=== PATIENT | female | born 1930 | race Caucasian/White ===

== ENCOUNTER → 2016-11-08 | Outpatient (CLI) | payer MEDICARE, OTHER ==
[~2016-11-08] MED LIST: ACID REDUCER20 MG PO; AGGRENOX PO; AGGRENOX1 CAP PO; ASPIRIN EC81 M1 PO; ASPIRIN81 M1 PO; ASPIRIN81 M2 PO; BENICAR20 MG PO; CARVEDILOL3.125 MG PO; COZAAR100 MG PO; ELIQUIS5 MG PO; FAMOTIDINE20 M1 PO; HYDROGESIC 5/501 CAP PO; IMDUR-ER30 M1 PO; IMDUR-ER30 MG PO; IMDUR30 MG PO; LIDOCREAM5 GM TOP; LIPITOR PO; LORTAB 7.5-5001 TAB PO; MEDROL4 MG/DOSE- PO; MICARDIS40 MG PO; NEXIUM PO; NITROGLYGERIN0.4 MG SL; PEPCID AC20 MG PO; PEPCID40 MG PO; PHENERGAN25 MG PO; PLAVIX PO; SIMVASTATIN40 MG PO; SYNTHROID PO; SYNTHROID0.1 MG PO; SYNTHROID125 PO; TYLOX1 CAP 5/50 PO; VICODIN PO
--- NOTE | ~2016-11-08 | CT2 ---
[facility] A Service of [facility] RADIOLOGY TEXT RESULTS PATIENT: ZEFERINO MARKS LOCATION: [facility]AT : 30 UNIT #: [id number] AGE: [address]: Ela Zelaya MD SEX: F ORDER DR: [id number] [facility] [address] [place], [place] [address] [id number] O MR#: [id number] Acc #: [id number] NAME: ZEFERINO MARKS : 1930 SEX: F STUDY DATE/TIME: 11/08/2016 15:48 UNIT: [facility]AT ROOM: STUDY DESCRIPTION: CT Abd and Pelv W Cont Attending Physician: Ela Zelaya M.D. Referring Physician: Ela Zelaya M.D. Ordering Physician: Ela Zelaya M.D. Primary Care Physician: Ela Zelaya M.D. MEDICAL IMAGING REPORT This report is preliminary unless electronic signature is present EXAM CT abdomen and pelvis with contrast. DATE 11/08/2016 HISTORY 86-year-old female abdominal wall pain in the left upper quadrant and left lower quadrant. Patient states left side abdominal pain for 1 week. Previous cholecystectomy, hysterectomy. COMPARISON CT abdomen and pelvis without contrast, 08/01/2016. PROCEDURE 5 mm axial images from the lung bases through the lesser trochanters after intravenous and enteric contrast administration. Sagittal and coronal reformatted images were obtained. This CT exam was performed with one or more of the following radiation dose reduction techniques: automatic exposure control, adjustment of mA and/or kV according to patient size, and iterative reconstruction. FINDINGS No acute displaced left lower rib fracture is identified on this examination. Degenerative changes are seen within the thoracolumbar spine with evidence of posterior thoracic spine and lumbar spine fusion. Lung bases are free of consolidation. The liver is diffusely steatotic. 1.8 cm low-density lesion in the right hepatic lobe inferiorly is compatible with a cyst. The liver is diffusely steatotic. 8 mm low-density splenic lesion, nonspecific, but favored to represent benign cyst or hemangioma is noted and cannot be seen on the previous noncontrast STS. [facility] A Service of [facility] RADIOLOGY TEXT RESULTS PATIENT: ZEFERINO MARKS LOCATION: [facility] : 30 UNIT #: [id number] AGE: [address]: Ela Zelaya MD SEX: F ORDER DR: study. Small esophageal hiatal hernia. Benign calcified granulomatous changes in the subcarinal region of the mediastinum. Uncomplicated sigmoid diverticulosis without evidence of diverticulitis. Appendix not visualized but no pericecal inflammation is seen. Kidneys bilaterally and mildly atrophic. Tiny low-density lesion in the anteromedial interpolar region of the right kidney measuring 5-6 mm, nonspecific, but favored to represent a cyst, unchanged since the noncontrast CT chest from 05/29/2014. Mild retroperitoneal varicosities. PELVIS FINDINGS: Hysterectomy. Urinary bladder and rectum are normal. IMPRESSION 1. No acute findings in the abdomen or pelvis to explain the patient's left side abdominal pain. 2. 1.8 cm probable right hepatic lobe cyst, unchanged since 05/29/2014. 3. 5-6 mm low-density right renal lesion, unchanged from 2014, favored to represent benign cysts. Mild bilateral renal atrophy. 4. Small esophageal hiatal hernia. 5. Mild sigmoid diverticulosis without evidence of acute diverticulitis. 6. Hysterectomy. Presumed cholecystectomy. 7. Posterior spinal fusion changes in the thoracic and lumbar spine. No acute osseous abnormalities are identified. Dictated by... Jenna Gutierrez M.D. THIS IS AN ELECTRONICALLY VERIFIED REPORT Jenna Gutierrez M.D. at 11/10/2016 7:56 AM THERESA/bc TD: 11/09/2016 09:24 JOB #: [id number] MEDICAL IMAGING REPORT Page 1 of 1 COPY
[2016-11-08 17:55] LABS: POC - CREATININE 0.99 mg/dL (0.44-1.03)
== END | disposition home or self-care (01) ==
LOC: CCAT 14:20
PROVIDERS: Internal Medicine
DX: R10.32 Left lower quadrant pain (principal); R10.12 Left upper quadrant pain; K44.9 Diaphragmatic hernia without obstruction or gangrene; K57.30 Diverticulosis of large intestine without perforation or abscess without bleeding; N28.89 Other specified disorders of kidney and ureter; N26.1 Atrophy of kidney (terminal); Z90.710 Acquired absence of both cervix and uterus; Z90.49 Acquired absence of other specified parts of digestive tract; Z98.1 Arthrodesis status
CPT/HCPCS: 74177; 82565; Q9967

== ENCOUNTER 2016-11-15 17:06 | Inpatient (IN) | payer MEDICARE, OTHER ==
--- NOTE | ~2016-11-15 | DS ---
Unit #: [id number] #: [id number] Patient: ZEFERINO MARKS [id number] [address] [address] [id number] I MR#: [id number] NAME: ZEFERINO MARKS ROOM: 564 Age: 86 Sex: F Admission Date: 11/16/2016 : 1930 Discharge Date: 11/17/2016 Attending Physician: Tyler Gandara M.D. Primary Care Physician: Ela Zelaya M.D. DISCHARGE SUMMARY DISCHARGE DIAGNOSES 1. Chest pain, ruled out for an acute myocardial infarction. 2. Status post Lexiscan Cardiolite Stress Test, 11/16/2016 which showed no stress-induced ischemia and ejection fraction of 69%. There is no focal wall abnormality. 3. Elevated D-dimer with positive pulmonary embolism in the right lower lobe found on CT. 4. Single vessel coronary artery disease with 70% stenosis in the mid right coronary artery in 2011 per cardiac catheterization. 5. Recent urinary tract infection. 6. Hypertension. 7. Hyperlipidemia. 8. Paroxysmal supraventricular tachycardia. DISCHARGE MEDICATIONS 1. Lidocaine cream 15 grams topically p.r.n. 2. Lipitor 10 mg q.h.s. 3. Losartan 100 mg daily 4. Pepcid 20 mg b.i.d. 5. Aspirin 80 mg daily 6. Levothyroxine 120 mcg daily 7. Imdur 30 mg daily 8. Eliquis 10 mg p.o. b.i.d. x7 days and then 5 mg p.o. b.i.d. HOSPITAL COURSE This is an 86-year-old female, who presented to the emergency room with the complaint of shortness of breath, palpitations, and chest pain. She was ruled out for myocardial infarction with negative cardiac enzymes and troponins. She was advised to undergo stress test to evaluate coronary anatomy given her 70% stenosis of the right coronary artery. It was felt that the patient's symptoms of palpitations could be secondary to paroxysmal supraventricular tachycardia; however, there was no evidence while she was in the hospital. She was scheduled to be discharged home but she still complained of shortness of breath. D-dimer was obtained which was elevated at 3668. Followup CTA of the chest revealed right lower lobe pulmonary embolism but the clot burden was relatively small. She was started on high drip heparin for high dose heparin drip and high dose Eliquis today. Her dyspnea has improved. She is stable for discharge today. ASSESSMENT VITAL SIGNS: Blood pressure 115/60, heart rate 70. CHEST: Clear to auscultation. HEART: S1 and S2, regular rate and rhythm. Unit #: [id number] #: [id number] Patient: ZEFERINO MARKS ABDOMEN: Soft with bowel sounds present. EXTREMITIES: Without leg edema. DIAGNOSTIC STUDIES LABORATORY: Cholesterol 180, triglycerides 168, LDL 107, HDL 39. TSH 1.30. DIAGNOSTIC IMAGING: CTA of the chest reveals pulmonary embolism in this segmental branch of the right lower lobe. Hot burden is relatively small. Postoperative changes with fibrosis in the right apex. DISCHARGE INSTRUCTIONS 1. The patient will be discharged home today. 2. Follow up with Dr. Gandara on January 08 at 12:45 p.m. 3. Follow up with primary care physician in one-to-two weeks. 4. Eliquis prescription has been given for 10 mg b.i.d. for seven days and then 5 mg daily for pulmonary embolism. No other changes in her medication regimen. After the patient was discharged home, she was noted to have a heart rate at 37 beats per minute at 1:44 in the a.m. We will call the patient for placement of a 24-hour holter monitor to evaluate for sick sinus syndrome. She is not on any rate-lowering medications. Dictated by... Deepti IrahetaRMary for Mony Rodriguez/maureen TD: 11/19/2016 14:42 JOB #: [id number] DISCHARGE SUMMARY Page 1 of 1 X William Chan APRN DISCHARGE SUMMARY
--- NOTE | ~2016-11-15 | TH ---
Unit #: [id number] #: [id number] Patient: ZEFERINO MARKS [id number] [address] [address] [id number] I MR#: [id number] NAME: ZEFERINO MARKS : 1930 SEX: F STUDY DATE/TIME: 11/16/2016 UNIT: [facility] ROOM: 564 STUDY DESCRIPTION: Lexiscan stress test -Nuclear Attending Physician: Tyler Gandara M.D. Primary Care Physician: Ela Zelaya M.D. CARDIOLOGY REPORT PROCEDURE PERFORMED Lexiscan Cardiolite stress test - Nuclear portion. PROCEDURE Using technetium 99m-labeled Cardiolite, rest and stress SPECT images were obtained. Multiple SPECT images were obtained in various views, including horizontal and vertical long axis and short axis views of the left ventricle. Images were obtained by gated SPECT method. The patient was administered 11.74 mCi of Cardiolite at rest. The patient was administered 34.5 mCi of Cardiolite after Lexiscan infusion was completed. On the stress images, there is normal perfusion noted. The rest images show normal perfusion. Comparing the rest and stress images, there is no stress-induced ischemia noted. The left ventricular ejection fraction is calculated to be 69%. There is no focal wall motion abnormality seen. CONCLUSION 1. No stress-induced ischemia noted. 2. The left ventricular ejection fraction is calculated to be 69%. 3. There is no focal wall motion abnormality seen. 4. The left ventricular size is small. 5. Normal Lexiscan Cardiolite stress test. Dictated by... Mony Rodriguez/lopez TD: 11/16/2016 12:08 JOB #: [id number] CARDIOLOGY REPORT Page 1 of 1 X Kanchan Larios MD <ELECTRONICALLY SIGNED> 02/17/17 1429 CARDIOLOGY REPORT
--- NOTE | ~2016-11-15 | EKG ---
PATIENT: ZEFERINO MARKS UNIT #: [id number] Ventricular Rate: 93 BPM Atrial Rate: 93 BPM P-R Interval: 156 ms QRS Duration: 84 ms Q-T Interval: 372 ms QTC Calculation(Bezet): 462 ms P Gabriels: 76 degrees Calculated R Gabriels: -34 degrees Calculated T Gabriels: 79 degrees Diagnosis Line: Normal sinus rhythm Diagnosis Line: Left axis deviation Diagnosis Line: Moderate voltage criteria for LVH, may be normal Diagnosis Line: variant Diagnosis Line: Abnormal ECG Diagnosis Line: No previous ECGs available Diagnosis Line: Confirmed by RADHA SORENSON MD ([id number]) on 11/16/2016 Diagnosis Line: 5:03:12 AM INTERPRETING MD: DELTA EDWARDS
--- NOTE | ~2016-11-15 | HP ---
Unit #: [id number] #: [id number] Patient: ZEFERINO MARKS [id number] [facility] [address]. [place], [place] [address] [id number] I MR#: [id number] NAME: ZEFERINO MARKS ROOM: 49609 Age: 86 Sex: F Admission Date: 11/15/2016 : 1930 Attending Physician: Tyler Gandara M.D. Primary Care Physician: Ela Zelaya M.D. HISTORY AND PHYSICAL HISTORY OF PRESENT ILLNESS This is an 86-year-old white female who is known to Dr. Gandara who has a history of coronary artery disease with 70% stenosis to the mid right coronary artery per cardiac catheterization in 2009. She was continued on medical therapy. She is known to have hypertension, hyperlipidemia, and premature coronary artery disease in an immediate family member, has risk factors for ischemic heart disease. The patient presented to the emergency room with the complaint of chest pain and palpitations. She went to visit her family in [place] last week. After returning home, she felt weak and fatigued. She was diagnosed with a urinary tract infection that was treated with Macrodantin. Her fatigue persisted. Yesterday she did not feel like going out with her sister. This morning she developed substernal chest tightness with associated shortness of breath and palpitations. She felt "shaky." She went outside because she felt that the fresh air would help her breathing. Her chest tightness remained for 2 hours. She decided to come to the emergency room for evaluation. In the emergency room, initial troponin was negative. EKG showed no acute ischemic changes. There is no evidence of arrhythmias. According to the patient, she took her blood pressure at home which was systolically 111. Her heart rate was in the 90s. She denied syncope or near syncope. She had no cough or fever. Electrolytes are within normal limits. PAST MEDICAL HISTORY 1. 2D echocardiogram 01/07/2013 shows an ejection fraction equal to 50% to 55%. There was trace aortic regurgitation and trace pulmonic valve regurgitation. 2. Left heart catheterization 11/20/[address] Gandara at [facility] that revealed left main, LAD, and circumflex arteries normal. Right coronary artery, large caliber dominant vessel with mid segment stenosis of 70%. Distal right coronary artery PDA and PLV branches normal. Ejection fraction of 60%. 3. Hypertension. 4. Hyperlipidemia. 5. History of TIA. 6. Hypothyroidism. 7. Right upper lobe cancer, status post right upper lobectomy. 8. Lifelong nonsmoker. PAST SURGICAL HISTORY 1. Cataract extraction. 2. Cholecystectomy. Unit #: [id number] #: [id number] Patient: ZEFERINO MARKS 3. Hysterectomy. 4. Right knee replacement. 5. Back surgery. 6. Neck surgery. 7. Sinus surgeries x2. 8. Thyroidectomy. 9. Right upper lobectomy secondary to cancer. HOME MEDICATIONS 1. Losartan. 2. Famotidine. 3. Levothyroxine. 4. Isosorbide. 5. Nitrofurantoin. ALLERGIES 1. Adhesives. 2. Sulfa antibiotics. 3. Ciprofloxacin. 4. Fentanyl. SOCIAL HISTORY The patient has never smoked. There is no illicit drug and alcohol use. FAMILY HISTORY Positive for myocardial infarction in a mother at the age of 67. Father at age 64 from sudden cardiac . She has a sister who has had a myocardial infarction. REVIEW OF SYSTEMS CONSTITUTIONAL: Positive for weakness and fatigue. No weight gain or weight loss. HEENT: No headache, hearing or vision changes. No difficulty with swallowing. CARDIOVASCULAR: Chest pain as described in the HPI. Positive for palpitations. No paroxysmal nocturnal dyspnea or orthopnea. RESPIRATORY: Positive for dyspnea that accompanies chest pain. No cough or hemoptysis. GASTROINTESTINAL: No abdominal pain, nausea or vomiting. No constipation or melena. EXTREMITIES: Negative for lower extremity edema. PHYSICAL EXAMINATION VITAL SIGNS: Blood pressure 132/75, heart rate 98, temperature 97.7. GENERAL: This is a pleasant, well-developed, 86-year-old elderly white female who appears younger than her stated age. NEUROLOGIC: She is awake, alert, and oriented. Noted for mild hearing deficit. NECK: Trachea is midline. No thyromegaly or lymphadenopathy. No jugular venous distention. LUNGS: Clear without rales, rhonchi or wheezes. HEART: S1, S2. Heart sounds normal. No murmurs, rubs, or clicks. Regular rate and rhythm. ABDOMEN: Soft, nontender, with bowel sounds present. No organomegaly. EXTREMITIES: Without leg edema. SKIN: Warm and dry. DIAGNOSTIC STUDIES Unit #: [id number] #: [id number] Patient: ZEFERINO MARKS LABORATORY: Glucose 117, BUN 14, creatinine 0.7, sodium 136, potassium 3.8. BNP 50. White count 7.1, hemoglobin 14.0, hematocrit 42.3, platelet count 150. Troponin less than 0.05. IMAGING: Chest x-ray shows no active disease. CARDIOVASCULAR: EKG normal sinus rhythm, rate 93 beats per minute, with nonspecific ST-wave abnormality. IMPRESSION 1. Chest pain, rule out significant ischemic heart disease. 2. Paroxysmal supraventricular tachycardia. 3. Recent urinary tract infection. 4. History of coronary artery disease with 70% stenosis in the mid right coronary artery per cardiac catheterization in 2011. PLAN 1. Will rule out myocardial infarction with repeat troponin and EKG. 2. If troponin is negative, will proceed with walking Lexiscan Cardiolite stress test in the a.m. 3. Start on nitrates, aspirin, and Lovenox. 4. Fasting lipid profile will be obtained. 5. The patient's chest pain could be secondary to paroxysmal supraventricular tachycardia. Will monitor her heart rhythm. 6. TSH will be obtained. Dictated by William Chan A.P.R.N. for Mony Franco/willy TD: 11/15/2016 20:21 JOB #: [id number] HISTORY AND PHYSICAL Page 1 of 1 X William Chan APRN X HISTORY AND PHYSICAL
--- NOTE | ~2016-11-15 | CT16 ---
[facility] A Service of [facility] RADIOLOGY TEXT RESULTS PATIENT: ZEFERINO MARKS LOCATION: [facility] 564-01 : 30 UNIT #: [id number] AGE: [address]: Tyler Gandara MD SEX: F ORDER DR: [id number] [facility] [address]. [place], [place] [address] [id number] I MR#: [id number] Acc #: [id number] NAME: ZEFERINO MARKS : 1930 SEX: F STUDY DATE/TIME: 11/16/2016 16:05 UNIT: [facility] ROOM: [facility] STUDY DESCRIPTION: CT Angio Chest for PE Attending Physician: Tyler Gandara M.D. Ordering Physician: Physician Non-Staff Primary Care Physician: Ela Zelaya M.D. MEDICAL IMAGING REPORT This report is preliminary unless electronic signature is present EXAM Chest CT with contrast pulmonary artery protocol with CT angiography 11/16/2016 HISTORY Elevated D-dimer with chest pain, tightness, palpitations, and shortness of breath for the past 2 days. TECHNIQUE Axial imaging was obtained through the chest with contrast. 80 mL of Isovue was used. CT angiography was performed with thick sliding MIPs in the sagittal coronal projections. This CT exam was performed with one or more of the following radiation dose reduction techniques: automatic exposure control, adjustment of mA and/or kV according to patient size, and iterative reconstruction. FINDINGS The study is abnormal. Multiple small filling defects are seen in segmental branches of the right lower lobe pulmonary artery. The clot burden is small. Elsewhere in the lungs, postoperative scarring is seen at the right apex. No suspicious masses or infiltrates are seen. No evidence of a pulmonary infarct. Postoperative changes of thoracic and lumbar fusion are noted. IMPRESSION 1. The study is positive for pulmonary embolism in a segmental branch of the right lower lobe. The clot burden is relatively small. No additional filling defects are seen elsewhere. 2. Postoperative changes with fibrosis at the right apex. 3. No evidence of pulmonary infarction. No evidence of pleural or pericardial fluid. Findings called to the floor by telephone at the time of this dictation. [facility] A Service of [facility] & [facility] RADIOLOGY TEXT RESULTS PATIENT: ZEFERINO MARKS LOCATION: [facility] 564-01 : 30 UNIT #: [id number] AGE: [address]: Tyler Gandara MD SEX: F ORDER DR: STAT * RESULT Dictated by... Urbano Milner M.D. THIS IS AN ELECTRONICALLY VERIFIED REPORT Urbano Milner M.D. at 11/17/2016 10:06 AM MISHEL/marah TD: 11/16/2016 16:29 JOB #: [id number] MEDICAL IMAGING REPORT Page 1 of 1 COPY
--- NOTE | ~2016-11-15 | CR72 ---
[facility] A Service of [facility] & [facility] RADIOLOGY TEXT RESULTS PATIENT: ZEFERINO MARKS LOCATION: [facility] : 30 UNIT #: [id number] AGE: [address]: Lyndon Wilson MD SEX: F ORDER DR: [id number] [facility] [address] [place], [place] [address] [id number] P MR#: [id number] Acc #: [id number] NAME: ZEFERINO MARKS : 1930 SEX: F STUDY DATE/TIME: 11/15/2016 15:53 UNIT: [facility] ROOM: STUDY DESCRIPTION: CR Chest Single View Portable Attending Physician: Lyndon Wilson M.D. Ordering Physician: Lyndon Wilson M.D. Primary Care Physician: Ela Zelaya M.D. MEDICAL IMAGING REPORT This report is preliminary unless electronic signature is present EXAM Portable chest HISTORY Chest tightness and palpitations for the past 2 days. COMPARISON 04/07/2014 TECHNIQUE Single view of the chest was obtained. FINDINGS The heart and mediastinum are stable. Postoperative changes again noted in the thoracic spine. The lungs are clear with normal vascular markings and no pleural fluid is seen. IMPRESSION No active disease. No change from the previous exam. No radiographic evidence of congestive heart failure. Dictated by... Urbano Milner M.D. THIS IS AN ELECTRONICALLY VERIFIED REPORT Urbano Milner M.D. at 11/15/2016 4:55 PM RLF/mauricer TD: 11/15/2016 16:42 JOB #: [id number] MEDICAL IMAGING REPORT Page 1 of 1 COPY
--- NOTE | ~2016-11-15 | ST ---
Unit #: [id number] #: [id number] Patient: ZEFERINO MARKS [id number] [facility]. [place] [id number] [facility]. [place], [place] [address] [id number] I MR#: [id number] NAME: ZEFERINO MARKS : 1930 SEX: F STUDY DATE/TIME: 11/16/2016 UNIT: [facility] ROOM: 564 STUDY DESCRIPTION: Attending Physician: Tyler Gandara M.D. Primary Care Physician: Ela Zelaya M.D. CARDIOLOGY REPORT EXAM Lexiscan Cardiolite stress test. FINDINGS Baseline EKG: Normal sinus rhythm with ventricular rate 74 beats per minute, poor R-wave progression. PROCEDURE Lexiscan is a 4-minute test with Lexiscan being injected within the first minute followed by Cardiolite. Next, EKG during the test did not show anything acute. No paroxysmal supraventricular tachycardia noted. Patient had no complaints of chest pain, palpitations, or dizziness. Had increased shortness of breath and fatigueness and some nausea which resolved in recovery phase. Next, maximal heart rate response was 121 beats per minute with a maximum blood pressure response of 183/103 mmHg. Next, it was noted at the end of recovery phase the patient's blood pressure decreased down to 165/84 mmHg. Next, Cardiolite was injected after Lexiscan within the first minute of the test. Radionuclide test pending. Please correlate with nuclear images. Dictated by... Ivelisse Handy A.P.R.N. for Mony Rodriguez/celestino TD: 11/16/2016 10:15 JOB #: [id number] CARDIOLOGY REPORT Page 1 of 1 X Ivelisse Handy APRN CARDIOLOGY REPORT
[2016-11-15 16:11] LABS: BASOPHIL# 0.1 X10e3 (0-0.3); BASOPHIL% 0.7 % (0-2.5); EOSINOPHIL# 0.1 X10e3 (0-0.7); EOSINOPHIL% 1.1 % (0.0-7.0); HEMATOCRIT 42.3 % (35.0-45.0); LYMPHOCYTE# 1.4 X10e3 (1.0-3.5); MEAN CELL VOLUME 91.7 FL (83-96); MEAN CORPUSCULAR HEMOGLOBIN 30.3 PG (28-34); MEAN PLATELET VOLUME 9.7 FL (6.5-11.5); MONOCYTE# 0.7 X10e3 (0-1.0); MONOCYTE% 9.9 % (3.0-12.0); NEUTROPHIL# 4.8 X10e3 (1.5-7.1); NEUTROPHIL% 68.3 % (40-75); PLATELET COUNT 150 X10e3 (140-420); RED BLOOD COUNT 4.62 X10e (3.90-5.30); RED CELL DISTRIBUTION WIDTH 13.8 % (11.0-15.5); WHITE BLOOD COUNT 7.1 X10e3 (4.0-10.5)
[2016-11-15 16:18] LABS: POC - CKMB <1.0 ng/mL (0.0-7.9); POC - TROPONIN <0.05 ng/mL (<=0.05)
[2016-11-15 16:24] LABS: DIFF IND NO
[2016-11-15 16:28] LABS: PARTIAL THROMBOPLASTIN TIME 22.7 SECONDS (23.5-31.3); PROTHROMBIN TIME (PATIENT) 10.5 SECONDS (9.6-11.5)
[2016-11-15 16:35] LABS: ALBUMIN SERUM 3.9 g/dL (3.5-5.0); BILIRUBIN, DIRECT 0.1 mg/dL (0.0-0.2); BILIRUBIN,INDIRECT 0.7 mg/dL (0.0-0.9); BILIRUBIN,TOTAL 0.8 mg/dL (0.2-2.0); CALCIUM SERUM 9.1 mg/dL (8.4-10.2); CREATININE SERUM 0.7 mg/dL (0.6-1.4); GLOM FILT RATE Estimated 78.5 mL/min (>60); POTASSIUM 3.8 mmol/L (3.5-5.1); PROTEIN TOTAL SERUM 6.7 g/dL (6.0-8.3)
[~2016-11-15 17:06] MED LIST changes: -ACID REDUCER20 MG PO; -ASPIRIN EC81 M1 PO; -COZAAR100 MG PO; -ELIQUIS5 MG PO; -IMDUR-ER30 M1 PO; -LIDOCREAM5 GM TOP; -LIPITOR PO; -SYNTHROID125 PO
[2016-11-15 17:28] LABS: POC - CKMB <1.0 ng/mL (0.0-7.9); POC - TROPONIN <0.05 ng/mL (<=0.05)
[2016-11-15] MEDS ORDERED: SYNTHROID125 PO (18:02)
[2016-11-15] MEDS ORDERED: COZAAR100 MG PO (18:02)
[2016-11-15] MEDS ORDERED: LIDOCREAM5 GM TOP (18:02)
[2016-11-15] MEDS ORDERED: ASPIRIN EC81 M1 PO (18:03)
[2016-11-15] MEDS ORDERED: IMDUR-ER30 M1 PO (18:03)
[2016-11-15] MEDS ORDERED: ACID REDUCER20 MG PO (18:03)
[2016-11-15 23:47] LABS: CK TOTAL 45 IU/L (26-140)
[2016-11-16 06:13] LABS: CK TOTAL 38 IU/L (26-140)
[2016-11-16 07:35] LABS: CHOLESTEROL 180 mg/dL (0-200); HDL CHOLESTEROL 39 mg/dL (35-95); LDL CHOLESTEROL 107 mg/dL (-130); LDL/HDL RATIO 3 RATIO (0-4); TRIGLYCERIDES 168 mg/dL (10-160)
[2016-11-17] MEDS ORDERED: LIPITOR PO (12:51)
[2016-11-17] MEDS ORDERED: ELIQUIS5 MG PO ×2 (12:54→12:55)
== END 2016-11-17 13:55 | disposition home or self-care (01) | DRG 176 ==
LOC: CED 17:06 → CEDOF 18:00 → C5C 11-16 16:25
PROVIDERS: Emergency Medicine; Internal Medicine Cardiovascular Disease
DX: I26.99 Other pulmonary embolism without acute cor pulmonale (principal); I47.1 Supraventricular tachycardia; E11.9 Type 2 diabetes mellitus without complications; I49.5 Sick sinus syndrome; I25.10 Atherosclerotic heart disease of native coronary artery without angina pectoris; I10 Essential (primary) hypertension; E78.5 Hyperlipidemia, unspecified; Z86.73 Personal history of transient ischemic attack (TIA), and cerebral infarction without residual deficits; E03.9 Hypothyroidism, unspecified; Z85.118 Personal history of other malignant neoplasm of bronchus and lung; Z96.651 Presence of right artificial knee joint; Z90.49 Acquired absence of other specified parts of digestive tract; R07.9 Chest pain, unspecified
CPT/HCPCS: 36415; 71010; 71275; 78452; 80048; 80061; 80076; 82550; 82553; 82947; 83880; 84443; 84484; 85025; 85379; 85610; 85730; 93005; 93017; 99285; A9500; J1644; J1650; J2785; Q9967

== ENCOUNTER 2016-12-31 12:12 | Emergency (ER) | payer MEDICARE, OTHER ==
--- NOTE | ~2016-12-31 | CR253 ---
[facility] A Service of [facility] & [facility] RADIOLOGY TEXT RESULTS PATIENT: ZEFERINO MARKS LOCATION: [facility] : 30 UNIT #: [id number] AGE: [address]: Maribel Rodriguez APRN SEX: F ORDER DR: [id number] [facility] [address] [place], [place] [address] [id number] E MR#: [id number] Acc #: [id number] NAME: ZEFERINO MARKS : 1930 SEX: F STUDY DATE/TIME: 12/31/2016 12:38 UNIT: [facility] ROOM: STUDY DESCRIPTION: CR Tibia and Fibula 2 Views Rt Attending Physician: Maribel Rodriguez A.P.R.N. Ordering Physician: Ed Jose Bustos M.D. Primary Care Physician: Ela Zelaya M.D. MEDICAL IMAGING REPORT This report is preliminary unless electronic signature is present EXAM Right tibia and fibula INDICATIONS Hit leg on brick 3 days ago with pain and redness. FINDINGS There is no evidence of fracture, dislocation, or radiopaque foreign body. IMPRESSION Normal tibia and fibula. Dictated by... Tae Alvarez M.D. THIS IS AN ELECTRONICALLY VERIFIED REPORT Tae Alvarez M.D. at 01/01/2017 7:27 AM ARIANA/ken TD: 12/31/2016 21:38 JOB #: [id number] MEDICAL IMAGING REPORT Page 1 of 1 COPY
[~2016-12-31 12:12] MED LIST changes: +ACID REDUCER20 MG PO; +ASPIRIN EC81 M1 PO; +COZAAR100 MG PO; +ELIQUIS5 MG PO; +IMDUR-ER30 M1 PO; +LIDOCREAM5 GM TOP; +LIPITOR PO; +SYNTHROID125 PO
== END 2016-12-31 13:27 | disposition home or self-care (01) ==
LOC: CED 12:12
DX: S80.811A Abrasion, right lower leg, initial encounter (principal); L03.115 Cellulitis of right lower limb; I10 Essential (primary) hypertension; E11.9 Type 2 diabetes mellitus without complications; Z23 Encounter for immunization; W45.8XXA Other foreign body or object entering through skin, initial encounter; Y93.89 Activity, other specified; Y92.096 Garden or yard of other non-institutional residence as the place of occurrence of the external cause
CPT/HCPCS: 73590; 90471; 90715; 99283

== ENCOUNTER 2017-01-31 18:02 | Emergency (ER) | payer MEDICARE, OTHER ==
--- NOTE | ~2017-01-31 | US85 ---
[facility] A Service of [facility] & [facility] RADIOLOGY TEXT RESULTS PATIENT: ZEFERINO MARKS LOCATION: [facility] : 30 UNIT #: [id number] AGE: [address]: Augusto Carrero MD SEX: F ORDER DR: [id number] [facility] [address] [place], [place] [address] [id number] P MR#: [id number] Acc #: [id number] NAME: ZEFERINO MARKS : 1930 SEX: F STUDY DATE/TIME: 01/31/2017 19:32 UNIT: [facility] ROOM: STUDY DESCRIPTION: [facility] Attending Physician: Augusto Carrero M.D. Ordering Physician: Ashley Alcazar M.D. Primary Care Physician: Ela Zelaya M.D. MEDICAL IMAGING REPORT This report is preliminary unless electronic signature is present EXAM Left lower extremity venous ultrasound HISTORY Left leg pain for 5 days. TECHNIQUE Venous ultrasound examination of the left lower extremity was performed using grayscale, spectral Doppler and color flow Doppler imaging. FINDINGS The examination is negative. There is no evidence of left lower extremity deep venous thrombus from the groin to the lower calf. Visualized greater saphenous vein is also patent. IMPRESSION Negative examination. No evidence of left lower extremity deep venous thrombosis. Dictated by... Vimal Canales M.D. THIS IS AN ELECTRONICALLY VERIFIED REPORT Vimal Canales M.D. at 02/01/2017 2:01 PM DFL/pcl TD: 01/31/2017 22:52 JOB #: [id number] MEDICAL IMAGING REPORT Page 1 of 1 COPY
[2017-01-31 18:44] LABS: BASOPHIL% 0.8 % (0-2.5); EOSINOPHIL# 0.2 X10e3 (0-0.7); EOSINOPHIL% 3.8 % (0.0-7.0); HEMATOCRIT 39.5 % (35.0-45.0); HEMOGLOBIN 12.8 gm/dL (12.0-16.0); LYMPHOCYTE# 1.2 X10e3 (1.0-3.5); LYMPHOCYTE% 21.3 % (17.0-45.0); MEAN CELL VOLUME 90.7 FL (83-96); MEAN CORPUSCULAR HEMOGLOBIN 29.5 PG (28-34); MEAN CORPUSCULAR HGB CONC 32.5 g/dL (30-36); MEAN PLATELET VOLUME 8.8 FL (6.5-11.5); MONOCYTE# 0.6 X10e3 (0-1.0); MONOCYTE% 11.5 % (3.0-12.0); NEUTROPHIL# 3.4 X10e3 (1.5-7.1); NEUTROPHIL% 62.6 % (40-75); PLATELET COUNT 174 X10e3 (140-420); RED BLOOD COUNT 4.36 X10e (3.90-5.30); RED CELL DISTRIBUTION WIDTH 13.5 % (11.0-15.5); WHITE BLOOD COUNT 5.5 X10e3 (4.0-10.5)
[2017-01-31 18:46] LABS: DIFF IND NO
[2017-01-31 19:05] LABS: BILIRUBIN, DIRECT 0.1 mg/dL (0.0-0.2); BILIRUBIN,INDIRECT 1.1 mg/dL (0.0-0.9); BILIRUBIN,TOTAL 1.2 mg/dL (0.2-2.0); CALCIUM SERUM 9.4 mg/dL (8.4-10.2); CREATININE SERUM 0.8 mg/dL (0.6-1.4); GLOM FILT RATE Estimated 66.8 mL/min (>60); POTASSIUM 3.9 mmol/L (3.5-5.1); PROTEIN TOTAL SERUM 6.8 g/dL (6.0-8.3); PROTHROMBIN TIME (PATIENT) 11.3 SECONDS (10.0-11.7)
[2017-01-31 19:07] LABS: PARTIAL THROMBOPLASTIN TIME 25.1 SECONDS (23.5-31.3)
== END 2017-01-31 23:55 | disposition home or self-care (01) ==
LOC: CED 18:02
PROVIDERS: Emergency Medicine
DX: M79.662 Pain in left lower leg (principal); E11.9 Type 2 diabetes mellitus without complications; I10 Essential (primary) hypertension; Z90.710 Acquired absence of both cervix and uterus; Z86.711 Personal history of pulmonary embolism; Z88.2 Allergy status to sulfonamides; Z88.1 Allergy status to other antibiotic agents; Z88.8 Allergy status to other drugs, medicaments and biological substances; Z79.82 Long term (current) use of aspirin; Z79.899 Other long term (current) drug therapy
CPT/HCPCS: 36415; 80048; 80076; 85025; 85610; 85730; 93971; 99284